=== PATIENT | female | born 1955 | race Caucasian/White ===

== ENCOUNTER 2016-05-07 11:26 | Emergency (ER) | payer OTHER ==
[2016-05-07 11:39] VITALS: BP 210/92; BMI 30.9
--- NOTE | 2016-05-07 11:58 | DR.GENAD ---
HPI - PCP Primary Care Physician: NFD - Complaint/Symptoms Chief Complaint Doctors Comments: rash in crease of leg and now a sore has developed. Chief Complaint:: WHAT I THINK IS STAPH ON PRIVATE PARTS. ONE AREA IS DRAINING AND A NEW ONE HAS COME UP Self Treatment fo Chief Complaint: ANTIBIOTIC CREAM - Nurses notes reviewed Nurses Notes Review: Yes - Source History Provided: Patient - Mode of Arrival Mode of Arrival: Ambulatory - Timing Onset of Chief Complaint: 05/04/16 Came on: Gradually - Duration Duration: Constant How lon Duration: Days - Location Location: right inguinal area - Severity Severity: Moderate - Modifying Factors Worsens:: palpation - Associated Signs and Symptoms Associated Signs and Symptoms: burning PMH - PMH Past Medical History: Yes Past Medical History: Anxiety, GERD, Hypertension Past Medical History Comment: VERTIGO Past Surgical History: Yes Surgical History: Cholecystectomy - Family History History of Family Medical Conditions: Yes Family Medical History: Diabetes Mellitus, MD, Coronary Artery Disease, Hypertension - Social History Alcohol Use: None Do you use any recreational Drugs:: No Lives With: Alone Lives Where: Home - infectious screening In the last 2 months have you had wt loss of >10#?: NO Have you had fever, night sweats or hemotysis?: No Have you traveled outside the country in the last 6 months?: No Isolation: Standard ROS - Review of Systems Constitutional: No Symptoms Reported Eyes: No Symptoms Reported ENTM: No Symptoms Reported Respiratoy: No Symptoms Reported Cardiovascular: No Symptoms Reported Gastrointestinal/Abdominal: No Symptoms Reported Genitourinary: No Symptoms Reported Neurological: No Symptoms Reported Musculoskeletal: No Symptoms Reported Integumentary: Change in Color (erythams right inguinal area,), Lesions (2 isolated sores in rash area) Hematologic/Lymphatic: No Symptoms Reported Endocrine: No Symptoms Reported PE - Vital Signs Vitals: Temperature 97.1 F Pulse Rate 84 Respiratory Rate 16 Blood Pressure [Right Arm] 127/80 Blood Pressure [Left Arm] 151/92 Blood Pressure 210/92 O2 Sat by Pulse Oximetry 98 - General Limitations: No Limitations General Appearance: Alert, In No Apparent Distress - Head Head Exam: Normal Inspection - Eyes Eye exam: EOMI. negative: Scleral Icterus, Conjunctival Injection - ENT External Ear Exam: Normal External Inspection - Neck Neck Exam: Normal Inspection, Full ROM, Trachea Midline - Respiratory Respiratory Exam: negative: Accessory Muscle Use, Respiratory Distress - Extremities Extremities Exam: Normal Inspection, Full ROM, Tenderness - Neurologic Neurological Exam: Alert, Oriented X3, CN II-XII Intact - Psychiatric Psychiatric Exam: Normal Mood - Skin Skin Exam: Intact, Rash (right inguinal area), Erythema. negative: Normal Color - Diagnosis Discharge Problem: Tinea cruris - Discharge Plan Condition: Stable Prescriptions: Clotrimazole 1 % (Topical) [Lotrimin Cream] 1 applic EXT BID PRN #15 gm PRN Reason: Sulfamethoxazole-Trimethoprim [BACTRIM DS TAB 800/160 MG *] 1 tab PO BID #20 tab - Follow ups/Referrals Follow ups/Referrals: NFD,None [Primary Care Provider] - 3 days - Instructions Instructions: Jock Itch, [id number]
== END 2016-05-07 12:31 | disposition home or self-care (01) ==
LOC: ER 11:51
DX: B35.6 Tinea cruris (principal); B95.62 Methicillin resistant Staphylococcus aureus infection as the cause of diseases classified elsewhere
CPT/HCPCS: 87070; 87075; 87077; 87186; 87205; 99282